=== PATIENT | male | born 1985 | race Caucasian/White ===

== ENCOUNTER → 2021-08-29 | Day surgery (SDC) | payer OTHER ==
[~2021-08-29] VITALS: Ht 180.3 cm; Wt 81.6 kg
[~2021-08-29] MED LIST: BUSPIRONE HCL15 M1 PO; CITALOPRAM HBR20 MG PO; ELAVIL25 MG PO; NORCO 5/3251 EACH PO; TIZANIDINE HCL4 MG PO
== END | disposition home or self-care (01) ==
LOC: FAS 06:11
DX: G56.03 Carpal tunnel syndrome, bilateral upper limbs (principal)
CPT/HCPCS: J1100; J1170; J1885; J2250; J2405; J2704; J3010; J7120